=== PATIENT | female | born 1955 | race Caucasian/White ===

== ENCOUNTER 2022-07-11 15:44 | Emergency (ER) | payer MEDICARE ==
[~2022-07-11] VITALS: Ht 167.7 cm; Wt 103.2 kg
--- NOTE | 2022-07-11 15:53 | ED Cardiac General ---
History of Present Illness General Stated Complaint: HEART RATE FLUCTUATING History of Present Illness Date Seen by Provider: July 11, 2022 Time Seen by Provider: 15:49 Initial Comments 67-year-old female sent in from urgent care because her "heart rate was fluctu ating" patient went in because she has some redness erythema on her leg and just want to have it evaluated and they did an EKG and found that her heart rate was abnormal. Patient has an artificial heart valve is on Coumadin but does not have any prior history of atrial fib, flutter or other arrhythmia. She does not have any chest pain, shortness of breath or other cardiac complaints. Allergies and Home Medications Allergies Coded Allergies: morphine (Verified Allergy, Unknown, 07/11/22) Patient Home Medication List Home Medication List Reviewed: Yes Diltiazem HCl (Cardizem Cd) 120 Mg Cap.er.24h, 120 MG PO DAILY Prescribed by: GRACY LEBRON on 07/11/22 8205 Review of Systems Review of Systems Constitutional: No chills, No fever Cardiovascular: See HPI Gastrointestinal: No Symptoms Reported Genitourinary: No Symptoms Reported Musculoskeletal: no symptoms reported Skin: see HPI Psychiatric/Neurological: No Symptoms Reported Physical Exam Vital Signs Vital Signs - First Documented 07/11/22 07/11/22 15:46 16:08 Temp 35.8 Pulse 120 Resp 18 B/P (MAP) 191/97 (128) Pulse Ox 94 O2 Delivery Room Air O2 Flow Rate 2.00 FiO2 95 Capillary Refill : Height, Weight, BMI Height: '" Weight: lbs. oz. kg; BMI Method: General Appearance: No Apparent Distress, WD/WN Respiratory: Lungs Clear, Normal Breath Sounds Cardiovascular: Tachycardia, Other (2+ bilateral lower extremity edema, irregular rhythm) Gastrointestinal: Non Tender, Soft Extremity: Normal Capillary Refill, Swelling Neurologic/Psychiatric: Alert, Oriented x3, No Motor/Sensory Deficits Progress/Results/Core Measures Results/Orders Lab Results Laboratory Tests Test 07/11/22 15:57 Range/Units White Blood Count 6.0 4.3-11.0 10^3/uL Red Blood Count 3.68 L 3.80-5.11 10^6/uL Hemoglobin 11.5 11.5-16.0 g/dL Hematocrit 38 35-52 % Mean Corpuscular Volume 102 H 80-99 fL Mean Corpuscular Hemoglobin 31 25-34 pg Mean Corpuscular Hemoglobin Concent 31 L 32-36 g/dL Red Cell Distribution Width 16.6 H 10.0-14.5 % Platelet Count 320 130-400 10^3/uL Mean Platelet Volume 9.0 9.0-12.2 fL Immature Granulocyte % (Auto) 0 % Neutrophils (%) (Auto) 57 42-75 % Lymphocytes (%) (Auto) 29 12-44 % Monocytes (%) (Auto) 13 H 0-12 % Eosinophils (%) (Auto) 1 0-10 % Basophils (%) (Auto) 1 0-10 % Neutrophils # (Auto) 3.4 1.8-7.8 10^3/uL Lymphocytes # (Auto) 1.7 1.0-4.0 10^3/uL Monocytes # (Auto) 0.8 0.0-1.0 10^3/uL Eosinophils # (Auto) 0.1 0.0-0.3 10^3/uL Basophils # (Auto) 0.1 0.0-0.1 10^3/uL Immature Granulocyte # (Auto) 0.0 0.0-0.1 10^3/uL Prothrombin Time 21.1 H 12.2-14.7 SEC INR Comment 1.8 H 0.8-1.4 Activated Partial Thromboplast Time 34 24-35 SEC Sodium Level 141 135-145 MMOL/L Potassium Level 4.4 3.6-5.0 MMOL/L Chloride Level 105 98-107 MMOL/L Carbon Dioxide Level 25 21-32 MMOL/L Anion Gap 11 5-14 MMOL/L Blood Urea Nitrogen 25 H 7-18 MG/DL Creatinine 0.85 0.60-1.30 MG/DL Estimat Glomerular Filtration Rate 75 BUN/Creatinine Ratio 29 Glucose Level 113 H 70-105 MG/DL Calcium Level 8.6 8.5-10.1 MG/DL Corrected Calcium 8.5 8.5-10.1 MG/DL Magnesium Level 1.8 1.6-2.4 MG/DL Total Bilirubin 0.3 0.1-1.0 MG/DL Aspartate Amino Transf (AST/SGOT) 32 5-34 U/L Alanine Aminotransferase (ALT/SGPT) 18 0-55 U/L Alkaline Phosphatase 136 40-136 U/L Total Protein 7.4 6.4-8.2 GM/DL Albumin 4.1 3.2-4.5 GM/DL My Orders Orders - GRACY LEBRON DO Cbc With Automated Diff (07/11/22 15:53) Comprehensive Metabolic Panel (07/11/22 15:53) Magnesium (07/11/22 15:53) Protime With Inr (07/11/22 15:53) Partial Thromboplastin Time (07/11/22 15:53) Ekg Tracing (07/11/22 15:53) Monitor-Rhythm Ecg Trace Only (07/11/22 15:53) Diltiazem Injection (Cardizem Injection) (07/11/22 16:00) Ekg Tracing (07/11/22 16:46) Diltiazem Cd 24 Hr Capsule (Cardizem Cd (07/11/22 17:00) Medications Given in ED Current Medications Medications Dose Ordered Sig/Nirali Route Start Time Stop Time Status Last Admin Dose Admin Diltiazem HCl 20 mg ONCE ONCE IVP 07/11/22 16:00 07/11/22 16:01 DC 07/11/22 16:06 20 MG Diltiazem HCl 120 mg ONCE ONCE PO 07/11/22 17:00 07/11/22 17:01 DC 07/11/22 17:03 120 MG Vital Signs/I&O 07/11/22 07/11/22 07/11/22 15:46 16:06 16:08 Temp 35.8 Pulse 120 118 Resp 18 B/P (MAP) 191/97 (128) 191/97 Pulse Ox 94 O2 Delivery Room Air Nasal Cannula O2 Flow Rate 2.00 FiO2 95 Progress Progress Note : Progress Note Patient's diagnostic studies were ordered reviewed and interpreted by me. Patient had no significant acute findings on her labs. Patient's initial EKG showed a ventricular rate of 115 with A-fib with RVR, QTc 417. She was given 20 IV Cardizem and had good response with heart rates in the 70s to 80s. Her daughter arrived and more information was obtained. They report that she had atrial fib in the past and in fact they were get ready to convert her when she spontaneously converted. They report that this was approximately a year or so ago. Up to that time she had been on Pacerone. Is unsure how long she has actually been atrial for this round. Following the Cardizem her repeat EKG approximately an hour later showed atrial fibs ventricular rate 93 however on the monitor remained most the time in the 80s. QTc 474. She was given an additional extended release Cardizem p.o. 120 mg. I prescribed her 120-minute milligrams daily extended release. Patient is currently on Coumadin with an appropriate INR so no further anticoagulation study is indicated. 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 This time I do not feel patient would likely benefit from additional hospital ization as she has a known history of atrial fib in the past and was rate controlled with Cardizem. Her initial heart rate was less than 100 2815 with good response to the Cardizem in the ER. She was stable upon discharge. Departure Impression Primary Impression: Atrial fibrillation Qualified Codes: I48.91 - Unspecified atrial fibrillation Disposition: HOME, SELF-CARE Condition: Stable Departure-Patient Inst. Referrals: MARLEN RODRIGUEZ MD (PCP/Family) Primary Care Physician Patient Instructions: Atrial Fibrillation (DC) Add. Discharge Instructions: Follow-up with your primary care provider early next week along with your towboat pilot for further outpatient management. Return to the ER with any concerns. Scripts Diltiazem HCl (Cardizem Cd) 120 Mg Cap.er.24h 120 MG PO DAILY for 14 Days, #14 CAP Prov: GRACY LEBRON DO 07/11/22 GRACY LEBRON DO July 11, 2022 15:53
[2022-07-11 16:07] LABS: BASOPHILS # (AUTO) 0.1 10^3/uL (0.0-0.1); BASOPHILS % (AUTO) 1 % (0-10); EOSINOPHILS # (AUTO) 0.1 10^3/uL (0.0-0.3); EOSINOPHILS % (AUTO) 1 % (0-10); HEMATOCRIT 38 % (35-52); HEMOGLOBIN 11.5 g/dL (11.5-16.0); LYMPHOCYTES # (AUTO) 1.7 10^3/uL (1.0-4.0); LYMPHOCYTES % (AUTO) 29 % (12-44); MEAN CORPUSCULAR HEMOGLOBIN 31 pg (25-34); MEAN CORPUSCULAR HGB CONC 31 g/dL (32-36); MEAN CORPUSCULAR VOLUME 102 fL (80-99); MONOCYTES # (AUTO) 0.8 10^3/uL (0.0-1.0); MONOCYTES % (AUTO) 13 % (0-12); NEUTROPHILS # (AUTO) 3.4 10^3/uL (1.8-7.8); NEUTROPHILS % (AUTO) 57 % (42-75); PLATELET COUNT 320 10^3/uL (130-400)
[2022-07-11 16:26] LABS: INR 1.8 (0.8-1.4); PROTHROMBIN TIME PATIENT 21.1 SEC (12.2-14.7)
[2022-07-11 16:27] LABS: ALBUMIN 4.1 GM/DL (3.2-4.5); BILIRUBIN,TOTAL 0.3 MG/DL (0.1-1.0); CALCIUM 8.6 MG/DL (8.5-10.1); CREATININE SERUM 0.85 MG/DL (0.60-1.30); MAGNESIUM 1.8 MG/DL (1.6-2.4); POTASSIUM 4.4 MMOL/L (3.6-5.0); TOTAL PROTEIN 7.4 GM/DL (6.4-8.2)
[2022-07-11] MEDS ORDERED: dilTIAZem120 MG (CARDIZEM CD) CAP PO ONE (17:00)
[2022-07-11] MEDS ORDERED: DILT120C82 PO (17:08)
[2022-07-11 17:18] VITALS: BP 148/91
== END 2022-07-11 17:15 | disposition home or self-care (01) ==
LOC: ER FS 15:47
DX: I48.91 Unspecified atrial fibrillation (principal); Z95.2 Presence of prosthetic heart valve; Z79.01 Long term (current) use of anticoagulants; Z28.310 Unvaccinated for COVID-19
CPT/HCPCS: 36415; 80053; 83735; 85025; 85610; 85730; 93005; 93041